=== PATIENT | male | born 1965 | race Caucasian/White ===

== ENCOUNTER 2017-05-13 13:00 | Inpatient (IN) | payer OTHER ==
[~2017-05-13] VITALS: Ht 185.4 cm; Wt 76.1 kg
[2017-05-13] MEDS ORDERED: SODIUM CHLORIDE 0.9% 1,000ML IVBOLUS ONE ×2 (13:30→15:30)
[2017-05-13] MEDS ORDERED: ONDANSETRON 2MG/ML, 2ML IVPush ONE (13:30)
[2017-05-13] MEDS ORDERED: SODIUM CHLORIDE FLUSH 10ML SYR IVF ONE (13:30)
[2017-05-13] MEDS ORDERED: MORPHINE SULFATE 4 MG/ML, 1ML ONE ×2 (13:41→15:11)
[2017-05-13] MEDS ORDERED: ONDANSETRON 2MG/ML, 2ML ONE ×2 (13:42→18:16)
[2017-05-13] MEDS: MORPHINE SULFATE 4 MG/ML, 1ML IVPush PRN ×2 (13:51→15:17)
[2017-05-13] MEDS ORDERED: PLEASE ENTER HEIGHT AND WEIGHT MC SCH (14:00)
[2017-05-13 14:05] LABS: ASPARTATE AMINO TRANSFERASE 26 U/L (15-37); BLOOD UREA NITROGEN 19 mg/dL (7-18)
[2017-05-13 14:35] LABS: DIFF TOTAL CELLS COUNTED 100 CELL DIFF
[2017-05-13 14:36] LABS: VERIFY COUNTS? YES
[2017-05-13] MEDS ORDERED: OMNIPAQUE 350 MG/ML, 100ML BOTTLE ONE (14:41)
[2017-05-13] MEDS ORDERED: AMPICILLIN/SULBACTAM 3 GM in SODIUM CHLORIDE 0.9% 100 ML IV ONE (15:30)
[2017-05-13] MEDS ORDERED: METRONIDAZOLE PMX 500MG/100ML 100 ML IV ONE (15:30)
[2017-05-13] MEDS ORDERED: METRONIDAZOLE PMX 500MG/100ML 100 ML ONE (15:45)
[2017-05-13] MEDS ORDERED: NS + 20MEQ KCL 1,000 ML IV SCH (16:48)
[2017-05-13 16:55] VITALS: BP 104/65
[2017-05-13] MEDS ORDERED: CEFTRIAXONE PMX 2GM/50ML 50 ML IV SCH (17:00)
[2017-05-13] MEDS ORDERED: CEFTRIAXONE 2 GM in SODIUM CHLORIDE 0.9% 50 ML IV SCH (17:00)
[2017-05-13] MEDS: NICOTINE 21 MG/24 HR PATCH.TD24 TD SCH (17:00)
[2017-05-13] MEDS ORDERED: morphine SULFATE 10 MG/ML, 1ML IVPush PRN (17:00)
[2017-05-13] MEDS ORDERED: METRONIDAZOLE PMX 500MG/100ML 100 ML IV SCH (17:00)
[2017-05-13] MEDS ORDERED: ACETAMINOPHEN 325 MG TABLET PO PRN ×2 (17:00→19:30)
[2017-05-13] MEDS ORDERED: LORazepam 2 MG/ML, 1ML IVPush PRN (17:00)
[2017-05-13] MEDS ORDERED: MIDAZOLAM 1 MG/ML, 2ML ONE (17:55)
[2017-05-13] MEDS ORDERED: FENTANYL PF 250 MCG/5ML ONE (17:55)
[2017-05-13] MEDS ORDERED: KETAMINE 10 MG/ML, 20ML ONE (17:55)
[2017-05-13] MEDS ORDERED: PIPERACILLIN/TAZO/PMX 3.375GM 50 ML ONE (18:10)
[2017-05-13] MEDS ORDERED: NEOSTIGMINE 1 MG/ML, 10ML ONE (18:16)
[2017-05-13] MEDS ORDERED: PHENYLEPHRINE 10 MG/ML ONE (18:16)
[2017-05-13] MEDS ORDERED: ROCURONIUM 10 MG/ML ONE (18:16)
[2017-05-13] MEDS ORDERED: PROPOFOL 10 MG/ML, 20ML ONE (18:16)
[2017-05-13] MEDS ORDERED: SUCCINYLCHOLINE 20 MG/ML, 10ML ONE (18:16)
[2017-05-13] MEDS ORDERED: GLYCOPYRROLATE 0.2MG/1ML ONE (18:16)
[2017-05-13] MEDS ORDERED: PROMETHAZINE 25 MG/ML, 1ML IV PRN (19:30)
[2017-05-13] MEDS ORDERED: FENTANYL PF 100 MCG/2ML IV PRN (19:30)
[2017-05-13] MEDS ORDERED: MEPERIDINE/PF 25MG/0.5ML IVPush PRN (19:30)
[2017-05-13] MEDS ORDERED: OXYcodone 5 MG/5 ML ORAL.SOL UDC PO PRN (19:30)
[2017-05-13] MEDS ORDERED: HYDROmorphone 1 MG/ML, 1ML ONE (19:54)
[2017-05-13] MEDS ORDERED: OXYcodone 5 MG/5 ML ORAL.SOL UDC ONE (19:54)
[2017-05-13] MEDS ORDERED: ACETAMINOPHEN 650 MG/20.3 ML UDC ONE (19:54)
[2017-05-13] MEDS: HYDROmorphone 1 MG/ML, 1ML IV PRN ×2 (20:00→20:05)
[2017-05-13] MEDS ORDERED: ACETAMINOPHEN 500 MG TABLET PO ONE (21:00)
[2017-05-13] MEDS ORDERED: ENOXAPARIN 30 MG/0.3 ML SQ SCH (21:00)
[2017-05-13] MEDS ORDERED: D5%-0.45NACL+KCL 20MEQ 1,000 ML IV SCH (21:00)
[2017-05-13] MEDS: PIPERACILLIN/TAZO 3.375 GM in SODIUM CHLORIDE 0.9% 50 ML IV SCH (21:18)
[2017-05-13] MEDS ORDERED: ACETAMINOPHEN 650 MG SUPP PR PRN (21:30)
[2017-05-13] MEDS ORDERED: LACTATED RINGERS 1,000 ML IVBOLUS PRN ×2 (21:30)
[2017-05-14] MEDS: METRONIDAZOLE PMX 500MG/100ML 100 ML IV SCH ×4 (00:59→23:40)
[2017-05-14] MEDS: ENOXAPARIN 30 MG/0.3 ML SQ SCH ×2 (01:46→20:58)
[2017-05-14] MEDS: PIPERACILLIN/TAZO 3.375 GM in SODIUM CHLORIDE 0.9% 50 ML IV SCH ×4 (02:07→20:58)
[2017-05-14] MEDS: HYDROcodone/APAP 5/325 TABLET PO PRN ×4 (02:10→23:40)
[2017-05-14 05:00] LABS: BLOOD UREA NITROGEN 15 mg/dL (7-18)
[2017-05-14 05:06] LABS: ASPARTATE AMINO TRANSFERASE 17 U/L (15-37)
[2017-05-14 05:47] LABS: DIFF TOTAL CELLS COUNTED 100 CELL DIFF
[2017-05-14 05:48] LABS: VERIFY COUNTS? YES
[2017-05-14] MEDS ORDERED: D5%-0.45NACL+KCL 20MEQ 1,000 ML IV SCH (07:30)
[2017-05-14] MEDS ORDERED: BISACODYL 10 MG SUPP PR ONE (09:00)
[2017-05-14] MEDS: ONDANSETRON 2MG/ML, 2ML IVPush PRN ×2 (12:42→23:40)
[2017-05-14] MEDS: NICOTINE 21 MG/24 HR PATCH.TD24 TD SCH (16:43)
[2017-05-14] MEDS ORDERED: morphine SULFATE 10 MG/ML, 1ML IVPush PRN (20:00)
[2017-05-14] MEDS: D5%-0.45NACL+KCL 20MEQ 1,000 ML IV SCH (20:58)
[2017-05-15] MEDS: PIPERACILLIN/TAZO 3.375 GM in SODIUM CHLORIDE 0.9% 50 ML IV SCH ×4 (03:21→22:08)
[2017-05-15 05:15] LABS: BLOOD UREA NITROGEN 11 mg/dL (7-18)
[2017-05-15] MEDS: D5%-0.45NACL+KCL 20MEQ 1,000 ML IV SCH (06:10)
[2017-05-15] MEDS: METRONIDAZOLE PMX 500MG/100ML 100 ML IV SCH ×3 (08:20→23:52)
[2017-05-15] MEDS: HYDROcodone/APAP 5/325 TABLET PO PRN (08:29)
[2017-05-15] MEDS: ONDANSETRON 2MG/ML, 2ML IVPush PRN (08:29)
[2017-05-15] MEDS: ENOXAPARIN 30 MG/0.3 ML SQ SCH ×2 (10:28→21:27)
[2017-05-15] MEDS ORDERED: HYDROmorphone PCA 30 MG/30 ML IV PRN (12:00)
[2017-05-15] MEDS: NICOTINE 21 MG/24 HR PATCH.TD24 TD SCH (16:54)
[2017-05-15 21:32] VITALS: BP 108/67
[2017-05-16 00:34] VITALS: BP 104/66
[2017-05-16] MEDS: PIPERACILLIN/TAZO 3.375 GM in SODIUM CHLORIDE 0.9% 50 ML IV SCH ×4 (04:17→21:44)
[2017-05-16 05:48] LABS: BLOOD UREA NITROGEN 13 mg/dL (7-18)
[2017-05-16 05:51] LABS: ASPARTATE AMINO TRANSFERASE 18 U/L (15-37)
[2017-05-16 07:13] VITALS: BP 101/63
[2017-05-16] MEDS: METRONIDAZOLE PMX 500MG/100ML 100 ML IV SCH (09:02)
[2017-05-16] MEDS: ENOXAPARIN 30 MG/0.3 ML SQ SCH ×2 (09:02→21:44)
[2017-05-16] MEDS ORDERED: LACTULOSE 10 GM/15 ML UDC PO PRN (12:00)
[2017-05-16] MEDS: DOCUSATE 100 MG CAPSULE PO SCH ×2 (12:46→21:44)
[2017-05-16 13:35] VITALS: BP 98/61
[2017-05-16] MEDS: NICOTINE 21 MG/24 HR PATCH.TD24 TD SCH (16:38)
[2017-05-16] MEDS: HYDROcodone/APAP 5/325 TABLET PO PRN (18:34)
[2017-05-16 19:19] VITALS: BP 95/57
[2017-05-16] MEDS ORDERED: MORPHINE SULFATE 4 MG/ML, 1ML ONE (19:58)
[2017-05-17 03:19] VITALS: BP 116/74
[2017-05-17] MEDS: PIPERACILLIN/TAZO 3.375 GM in SODIUM CHLORIDE 0.9% 50 ML IV SCH ×4 (04:23→21:14)
[2017-05-17 06:04] LABS: BLOOD UREA NITROGEN 13 mg/dL (7-18)
[2017-05-17 07:14] VITALS: BP 100/62
[2017-05-17] MEDS: DOCUSATE 100 MG CAPSULE PO SCH ×2 (08:47→21:12)
[2017-05-17] MEDS: ENOXAPARIN 30 MG/0.3 ML SQ SCH ×2 (08:47→21:12)
[2017-05-17 16:05] VITALS: BP 119/78
[2017-05-17] MEDS: NICOTINE 21 MG/24 HR PATCH.TD24 TD SCH (16:19)
[2017-05-17 19:33] VITALS: BP 106/68
[2017-05-18] MEDS: HYDROcodone/APAP 5/325 TABLET PO PRN ×4 (00:39→20:57)
[2017-05-18 02:27] VITALS: BP 114/73
[2017-05-18] MEDS: PIPERACILLIN/TAZO 3.375 GM in SODIUM CHLORIDE 0.9% 50 ML IV SCH ×3 (04:10→16:53)
[2017-05-18 06:43] VITALS: BP 128/84
[2017-05-18] MEDS: DOCUSATE 100 MG CAPSULE PO SCH ×2 (08:52→20:28)
[2017-05-18] MEDS: ENOXAPARIN 30 MG/0.3 ML SQ SCH ×2 (08:52→20:28)
[2017-05-18 15:17] VITALS: BP 112/70
[2017-05-18] MEDS: NICOTINE 21 MG/24 HR PATCH.TD24 TD SCH (16:53)
[2017-05-18 18:37] VITALS: BP 110/65
[2017-05-19] MEDS: HYDROcodone/APAP 5/325 TABLET PO PRN ×3 (00:52→12:46)
[2017-05-19 01:44] VITALS: BP 116/78
[2017-05-19] MEDS: PIPERACILLIN/TAZO/PMX 3.375GM 50 ML IV SCH ×2 (04:10→09:23)
[2017-05-19 07:56] VITALS: BP 120/78
[2017-05-19] MEDS: DOCUSATE 100 MG CAPSULE PO SCH (09:00)
[2017-05-19] MEDS: ENOXAPARIN 30 MG/0.3 ML SQ SCH (09:23)
[2017-05-19] MEDS ORDERED: CEFD300C37 PO (12:33)
[2017-05-19] MEDS ORDERED: METR500T PO (12:33)
[2017-05-19 12:49] VITALS: BP 114/74
== END 2017-05-19 14:54 | disposition home or self-care (01) | DRG 853 ==
LOC: ED 14:11 → EDIP 15:52 → 4NOR 17:02 → CCU 20:40 → 4NOR 05-15 20:18 → DCLOUNGE 05-19 14:23
PROVIDERS: ADMIT Hospitalist; ATTEND Hospitalist
PROC: 0DTJ0ZZ Resection of Appendix, Open Approach (ICD-10-PCS; principal; 2017-05-14)
PROC: 0W9H00Z Drainage of Retroperitoneum with Drainage Device, Open Approach (ICD-10-PCS; 2017-05-14)
DX: A41.9 Sepsis, unspecified organism (principal); K68.19 Other retroperitoneal abscess; F17.200 Nicotine dependence, unspecified, uncomplicated; D75.89 Other specified diseases of blood and blood-forming organs; S30.851A Superficial foreign body of abdominal wall, initial encounter
CPT/HCPCS: 36415; 74000; 74177; 80048; 80053; 81001; 82962; 83605; 83690; 83735; 84100; 84145; 85025; 87040; 87070; 87075; 87076; 87077; 87081; 87086; 87186; 87205; 88304; 93005; 96361; 96365; 96375; 96376; J0696; J1170; J1650; J2250; J2270; J2405; J2543; J2704; J2710; J3010; J3490; Q9967; J0330; J2060; J2370; J3480; J7030; J7120

== ENCOUNTER 2017-07-19 14:10 | Emergency (ER) | payer OTHER ==
[~2017-07-19] VITALS: Ht 185.4 cm; Wt 86.7 kg
[~2017-07-19 14:10] MED LIST: CEFD300C37 PO; METR500T PO
[2017-07-19] MEDS ORDERED: SODIUM CHLORIDE FLUSH 10ML SYR IVF ONE (17:00)
[2017-07-19 17:12] LABS: HEMATOCRIT 42.3 % (39.2-51.8); HEMOGLOBIN 14.2 g/dL (13.7-18.0)
[2017-07-19 17:19] LABS: BLOOD UREA NITROGEN 16 mg/dL (7-18)
[2017-07-19 17:22] LABS: ASPARTATE AMINO TRANSFERASE 13 U/L (15-37)
[2017-07-19 17:29] VITALS: BP 131/90
[2017-07-19] MEDS ORDERED: OMNIPAQUE 350 MG/ML, 100ML BOTTLE ONE (17:44)
== END 2017-07-19 18:30 | disposition home or self-care (01) ==
LOC: ED 18:24
DX: R10.84 Generalized abdominal pain (principal); R11.0 Nausea; R19.7 Diarrhea, unspecified
CPT/HCPCS: 36415; 74177; 80053; 83690; 85025; 85610; 85730; 93005; 99285; Q9967

== ENCOUNTER 2017-08-24 01:01 | Inpatient (IN) | payer MEDICAID, OTHER ==
[~2017-08-24] VITALS: Ht 185.4 cm; Wt 75.7 kg
[2017-08-24] MEDS ORDERED: ONDANSETRON 2MG/ML, 2ML IVPush ONE (01:30)
[2017-08-24] MEDS ORDERED: SODIUM CHLORIDE 0.9% 1,000ML IVBOLUS ONE ×2 (01:30→02:30)
[2017-08-24] MEDS ORDERED: ONDANSETRON 2MG/ML, 2ML ONE (01:37)
[2017-08-24] MEDS ORDERED: MORPHINE SULFATE 4 MG/ML, 1ML ONE ×2 (01:37→02:23)
[2017-08-24 01:55] LABS: HEMATOCRIT 40.7 % (39.2-51.8); HEMOGLOBIN 13.9 g/dL (13.7-18.0); WHITE BLOOD COUNT 30.1 x10^3/uL (3.4-10)
[2017-08-24] MEDS: MORPHINE SULFATE 4 MG/ML, 1ML IVPush PRN ×2 (01:59→02:26)
[2017-08-24 02:04] LABS: ASPARTATE AMINO TRANSFERASE 68 U/L (15-37); BLOOD UREA NITROGEN 12 mg/dL (7-18)
[2017-08-24] MEDS ORDERED: PIPERACILLIN/TAZO/PMX 4.5GM 100 ML IV ONE (02:30)
[2017-08-24] MEDS ORDERED: OMNIPAQUE 350 MG/ML, 100ML BOTTLE ONE (02:49)
[2017-08-24] MEDS ORDERED: VANCOMYCIN 1,600 MG in SODIUM CHLORIDE 0.9% 250 ML IV ONE (04:30)
[2017-08-24] MEDS ORDERED: ONDANSETRON 2MG/ML, 2ML IVPush PRN (04:30)
[2017-08-24] MEDS ORDERED: PIPERACILLIN/TAZO/PMX 4.5GM 100 ML IV SCH (04:30)
[2017-08-24] MEDS ORDERED: VANCOMYCIN PER PHARMACY MC PRN ×2 (04:30)
[2017-08-24] MEDS ORDERED: hydrALAzine 20 MG/ML, 1ML IVPush PRN (04:30)
[2017-08-24] MEDS ORDERED: HEPARIN 5,000 UNITS/ML, 1ML ONE (04:55)
[2017-08-24] MEDS: LACTATED RINGERS 1,000 ML IV SCH ×3 (05:15→23:43)
[2017-08-24] MEDS: HEPARIN 5,000 UNITS/ML, 1ML SQ SCH ×3 (05:15→21:02)
[2017-08-24] MEDS ORDERED: HYDROmorphone 1 MG/ML, 1ML ONE (05:17)
[2017-08-24] MEDS: HYDROmorphone 2 MG/ML, 1ML IVPush PRN ×4 (05:23→21:02)
[2017-08-24 06:18] VITALS: BP 111/73
[2017-08-24] MEDS ORDERED: PHARMACOKINETIC MONITORING MC PRN (06:30)
[2017-08-24] MEDS ORDERED: PHARMACOKINETIC CONSULTATION MC ONE (06:30)
[2017-08-24] MEDS: PIPERACILLIN/TAZO/PMX 4.5GM 100 ML IV SCH ×3 (08:17→21:02)
[2017-08-24] MEDS ORDERED: LIDOCAINE 2%, 20ML ONE (10:28)
[2017-08-24] MEDS ORDERED: NALOXONE 1 MG/ML, 2ML ONE (11:04)
[2017-08-24] MEDS ORDERED: FENTANYL PF 100 MCG/2ML ONE (11:04)
[2017-08-24] MEDS ORDERED: FLUMAZENIL 0.1 MG/1 ML, 5ML ONE (11:04)
[2017-08-24] MEDS ORDERED: MIDAZOLAM 1 MG/ML, 5ML ONE (11:04)
[2017-08-24 13:16] VITALS: BP 123/78
[2017-08-24] MEDS: VANCOMYCIN 1,600 MG in SODIUM CHLORIDE 0.9% 250 ML IV SCH (17:06)
[2017-08-24 19:45] VITALS: BP 107/67
[2017-08-24] MEDS ORDERED: ACETAMINOPHEN 325 MG TABLET PO PRN (21:30)
[2017-08-24] MEDS ORDERED: ACETAMINOPHEN 325 MG TABLET ONE (21:33)
[2017-08-24 23:43] VITALS: BP 114/70
[2017-08-25 01:52] VITALS: BP 120/85
[2017-08-25] MEDS: HYDROmorphone 2 MG/ML, 1ML IVPush PRN ×6 (03:08→23:57)
[2017-08-25] MEDS: PIPERACILLIN/TAZO/PMX 4.5GM 100 ML IV SCH ×4 (03:08→20:02)
[2017-08-25] MEDS: VANCOMYCIN 1,600 MG in SODIUM CHLORIDE 0.9% 250 ML IV SCH ×2 (04:26→16:09)
[2017-08-25 05:39] LABS: HEMATOCRIT 36.6 % (39.2-51.8); HEMOGLOBIN 12.2 g/dL (13.7-18.0); WHITE BLOOD COUNT 41.6 x10^3/uL (3.4-10)
[2017-08-25] MEDS: HEPARIN 5,000 UNITS/ML, 1ML SQ SCH ×3 (05:45→20:02)
[2017-08-25 06:25] LABS: ASPARTATE AMINO TRANSFERASE 25 U/L (15-37); BLOOD UREA NITROGEN 13 mg/dL (7-18)
[2017-08-25 07:16] VITALS: BP 105/67
[2017-08-25 14:08] VITALS: BP 130/78
[2017-08-25 20:05] VITALS: BP 119/76
[2017-08-26 01:28] VITALS: BP 105/66
[2017-08-26] MEDS: LACTATED RINGERS 1,000 ML IV SCH ×2 (02:08→20:17)
[2017-08-26] MEDS: PIPERACILLIN/TAZO/PMX 4.5GM 100 ML IV SCH ×4 (02:36→20:16)
[2017-08-26 04:08] LABS: HEMOGLOBIN 11.4 g/dL (13.7-18.0); WHITE BLOOD COUNT 37.8 x10^3/uL (3.4-10)
[2017-08-26 04:31] LABS: ASPARTATE AMINO TRANSFERASE 12 U/L (15-37); BLOOD UREA NITROGEN 20 mg/dL (7-18)
[2017-08-26] MEDS: VANCOMYCIN 1,600 MG in SODIUM CHLORIDE 0.9% 250 ML IV SCH ×2 (04:42→06:09)
[2017-08-26] MEDS: HEPARIN 5,000 UNITS/ML, 1ML SQ SCH ×3 (04:44→20:16)
[2017-08-26] MEDS: HYDROmorphone 2 MG/ML, 1ML IVPush PRN ×5 (04:45→22:13)
[2017-08-26 07:09] VITALS: BP 111/72
[2017-08-26 13:33] VITALS: BP 121/76
[2017-08-26] MEDS: VANCOMYCIN 1,400 MG in SODIUM CHLORIDE 0.9% 250 ML IV SCH (18:33)
[2017-08-26 20:30] VITALS: BP 118/74
[2017-08-26] MEDS ORDERED: ACETAMINOPHEN 325 MG TABLET PO PRN (21:30)
[2017-08-26] MEDS ORDERED: hydrALAzine 20 MG/ML, 1ML IVPush PRN (21:30)
[2017-08-26] MEDS ORDERED: VANCOMYCIN PER PHARMACY MC PRN (21:30)
[2017-08-26] MEDS ORDERED: ONDANSETRON 2MG/ML, 2ML IVPush PRN (21:30)
[2017-08-26] MEDS ORDERED: OMNIPAQUE 350 MG/ML, 100ML BOTTLE ONE (22:38)
[2017-08-27 00:46] VITALS: BP 109/70
[2017-08-27] MEDS: HYDROmorphone 2 MG/ML, 1ML IVPush PRN ×7 (01:56→23:31)
[2017-08-27] MEDS: PIPERACILLIN/TAZO/PMX 4.5GM 100 ML IV SCH ×4 (03:23→23:30)
[2017-08-27 05:06] LABS: HEMATOCRIT 32.3 % (39.2-51.8); HEMOGLOBIN 10.9 g/dL (13.7-18.0); WHITE BLOOD COUNT 28.4 x10^3/uL (3.4-10)
[2017-08-27 05:19] LABS: ASPARTATE AMINO TRANSFERASE 9 U/L (15-37); BLOOD UREA NITROGEN 17 mg/dL (7-18)
[2017-08-27] MEDS: VANCOMYCIN 1,400 MG in SODIUM CHLORIDE 0.9% 250 ML IV SCH ×2 (05:28→18:44)
[2017-08-27] MEDS: HEPARIN 5,000 UNITS/ML, 1ML SQ SCH ×3 (05:28→23:31)
[2017-08-27] MEDS: LACTATED RINGERS 1,000 ML IV SCH ×2 (09:54→22:35)
[2017-08-27 13:31] VITALS: BP 118/76
[2017-08-27 19:42] VITALS: BP 114/74
[2017-08-28 02:27] VITALS: BP 124/78
[2017-08-28] MEDS: HYDROmorphone 2 MG/ML, 1ML IVPush PRN ×3 (05:13→13:22)
[2017-08-28] MEDS: PIPERACILLIN/TAZO/PMX 4.5GM 100 ML IV SCH ×3 (05:13→22:16)
[2017-08-28 06:17] LABS: HEMATOCRIT 31.1 % (39.2-51.8); HEMOGLOBIN 10.6 g/dL (13.7-18.0); WHITE BLOOD COUNT 22.3 x10^3/uL (3.4-10)
[2017-08-28] MEDS: VANCOMYCIN 1,400 MG in SODIUM CHLORIDE 0.9% 250 ML IV SCH ×3 (06:25→19:38)
[2017-08-28] MEDS: LACTATED RINGERS 1,000 ML IV SCH (06:25)
[2017-08-28 06:44] LABS: ASPARTATE AMINO TRANSFERASE 20 U/L (15-37); BLOOD UREA NITROGEN 12 mg/dL (7-18)
[2017-08-28 06:51] LABS: C-REACTIVE PROTEIN, QUANT > 19.00 mg/dL (0.02-0.49)
[2017-08-28 06:58] VITALS: BP 108/68
[2017-08-28] MEDS: HEPARIN 5,000 UNITS/ML, 1ML SQ SCH ×2 (09:10→18:37)
[2017-08-28] MEDS ORDERED: HYDROcodone/APAP 5/325 TABLET PO PRN (10:00)
[2017-08-28] MEDS: SODIUM CHLORIDE 0.9% 1,000 ML IV SCH ×2 (12:05→22:19)
[2017-08-28 14:53] VITALS: BP 117/74
[2017-08-28] MEDS: HYDROcodone/APAP 5/325 TABLET PO PRN ×2 (17:49→22:19)
[2017-08-28 20:00] VITALS: BP 107/71
[2017-08-29 02:00] VITALS: BP 120/81
[2017-08-29] MEDS: PIPERACILLIN/TAZO/PMX 4.5GM 100 ML IV SCH ×3 (03:42→20:23)
[2017-08-29] MEDS: HEPARIN 5,000 UNITS/ML, 1ML SQ SCH ×3 (03:42→20:23)
[2017-08-29 05:25] LABS: HEMATOCRIT 29.4 % (39.2-51.8); HEMOGLOBIN 9.9 g/dL (13.7-18.0); WHITE BLOOD COUNT 18.6 x10^3/uL (3.4-10)
[2017-08-29 05:29] LABS: ASPARTATE AMINO TRANSFERASE 13 U/L (15-37); BLOOD UREA NITROGEN 12 mg/dL (7-18)
[2017-08-29] MEDS: VANCOMYCIN 1,400 MG in SODIUM CHLORIDE 0.9% 250 ML IV SCH (06:43)
[2017-08-29] MEDS: HYDROcodone/APAP 5/325 TABLET PO PRN ×4 (06:43→21:11)
[2017-08-29 08:25] VITALS: BP 116/79
[2017-08-29] MEDS: SODIUM CHLORIDE 0.9% 1,000 ML IV SCH (08:50)
[2017-08-29] MEDS ORDERED: POTASSIUM CHLORIDE 20 MEQ TAB.ER.PRT PO ONE (10:00)
[2017-08-29 13:15] VITALS: BP 112/68
[2017-08-29 20:00] VITALS: BP 116/68
[2017-08-30] MEDS: HYDROcodone/APAP 5/325 TABLET PO PRN ×4 (01:30→21:36)
[2017-08-30 02:00] VITALS: BP 127/84
[2017-08-30] MEDS: PIPERACILLIN/TAZO/PMX 4.5GM 100 ML IV SCH ×3 (04:11→20:15)
[2017-08-30] MEDS: HEPARIN 5,000 UNITS/ML, 1ML SQ SCH ×3 (04:11→20:15)
[2017-08-30 04:26] LABS: HEMATOCRIT 31.9 % (39.2-51.8); HEMOGLOBIN 10.7 g/dL (13.7-18.0); WHITE BLOOD COUNT 19.5 x10^3/uL (3.4-10)
[2017-08-30 04:38] LABS: BLOOD UREA NITROGEN 13 mg/dL (7-18)
[2017-08-30 06:09] LABS: DIFF TOTAL CELLS COUNTED 100 CELL DIFF
[2017-08-30 06:11] LABS: ANISOCYTOSIS 1+; VERIFY COUNTS? YES
[2017-08-30 06:13] LABS: POLYCHROMASIA 1+
[2017-08-30 08:15] VITALS: BP 119/79
[2017-08-30 14:00] VITALS: BP 132/79
[2017-08-30 20:00] VITALS: BP 117/72
[2017-08-31 02:00] VITALS: BP 115/76
[2017-08-31] MEDS: HEPARIN 5,000 UNITS/ML, 1ML SQ SCH ×3 (04:13→19:48)
[2017-08-31] MEDS: PIPERACILLIN/TAZO/PMX 4.5GM 100 ML IV SCH ×3 (04:13→19:48)
[2017-08-31] MEDS: HYDROcodone/APAP 5/325 TABLET PO PRN ×3 (04:16→17:59)
[2017-08-31] MEDS: HYDROmorphone 2 MG/ML, 1ML IVPush PRN ×4 (05:28→20:58)
[2017-08-31 06:51] LABS: HEMATOCRIT 31.2 % (39.2-51.8); HEMOGLOBIN 10.5 g/dL (13.7-18.0); WHITE BLOOD COUNT 17.9 x10^3/uL (3.4-10)
[2017-08-31 06:59] LABS: ASPARTATE AMINO TRANSFERASE 16 U/L (15-37); BLOOD UREA NITROGEN 13 mg/dL (7-18)
[2017-08-31 07:08] VITALS: BP 116/77
[2017-08-31 14:33] VITALS: BP 123/80
[2017-08-31 19:59] VITALS: BP 124/77
[2017-09-01 01:53] VITALS: BP 123/77
[2017-09-01] MEDS: PIPERACILLIN/TAZO/PMX 4.5GM 100 ML IV SCH ×3 (03:54→21:52)
[2017-09-01] MEDS: HEPARIN 5,000 UNITS/ML, 1ML SQ SCH ×3 (03:54→21:52)
[2017-09-01] MEDS: HYDROcodone/APAP 5/325 TABLET PO PRN ×4 (03:54→22:39)
[2017-09-01 05:46] LABS: HEMATOCRIT 32.6 % (39.2-51.8); HEMOGLOBIN 10.7 g/dL (13.7-18.0); WHITE BLOOD COUNT 18.5 x10^3/uL (3.4-10)
[2017-09-01 06:08] LABS: ASPARTATE AMINO TRANSFERASE 17 U/L (15-37); BLOOD UREA NITROGEN 14 mg/dL (7-18)
[2017-09-01 08:29] VITALS: BP 127/79
[2017-09-01 14:03] VITALS: BP 121/83
[2017-09-01 19:21] VITALS: BP 113/73
[2017-09-02 01:57] VITALS: BP 120/80
[2017-09-02] MEDS: HEPARIN 5,000 UNITS/ML, 1ML SQ SCH ×3 (04:53→20:32)
[2017-09-02] MEDS: PIPERACILLIN/TAZO/PMX 4.5GM 100 ML IV SCH ×3 (04:53→20:31)
[2017-09-02] MEDS: HYDROcodone/APAP 5/325 TABLET PO PRN ×2 (05:07→16:50)
[2017-09-02] MEDS: HYDROmorphone 2 MG/ML, 1ML IVPush PRN ×2 (07:14→22:57)
[2017-09-02 07:24] VITALS: BP 124/83
[2017-09-02] MEDS ORDERED: OMNIPAQUE 350 MG/ML, 100ML BOTTLE ONE (08:44)
[2017-09-02 13:30] VITALS: BP 128/86
[2017-09-02 20:21] VITALS: BP 108/69
[2017-09-02] MEDS ORDERED: hydrALAzine 20 MG/ML, 1ML IVPush PRN (20:30)
[2017-09-02] MEDS ORDERED: ACETAMINOPHEN 325 MG TABLET PO PRN (20:30)
[2017-09-02] MEDS ORDERED: ONDANSETRON 2MG/ML, 2ML IVPush PRN (20:30)
[2017-09-03 02:08] VITALS: BP 122/76
[2017-09-03] MEDS: HYDROcodone/APAP 5/325 TABLET PO PRN ×3 (03:33→21:27)
[2017-09-03] MEDS: PIPERACILLIN/TAZO/PMX 4.5GM 100 ML IV SCH ×3 (04:37→20:07)
[2017-09-03] MEDS: HEPARIN 5,000 UNITS/ML, 1ML SQ SCH ×3 (04:38→20:07)
[2017-09-03 07:45] VITALS: BP 119/82
[2017-09-03] MEDS: MICAFUNGIN 100 MG in SODIUM CHLORIDE 0.9% 100 ML IV SCH (13:59)
[2017-09-03 14:21] VITALS: BP 108/58
[2017-09-03] MEDS: HYDROmorphone 2 MG/ML, 1ML IVPush PRN (19:11)
[2017-09-03 20:00] VITALS: BP 106/68
[2017-09-04 02:00] VITALS: BP 115/77
[2017-09-04] MEDS: HYDROcodone/APAP 5/325 TABLET PO PRN ×2 (03:32→15:10)
[2017-09-04] MEDS: HEPARIN 5,000 UNITS/ML, 1ML SQ SCH ×3 (04:30→20:27)
[2017-09-04] MEDS: PIPERACILLIN/TAZO/PMX 4.5GM 100 ML IV SCH ×3 (04:30→20:26)
[2017-09-04 04:58] LABS: HEMATOCRIT 31.6 % (39.2-51.8); HEMOGLOBIN 10.6 g/dL (13.7-18.0); WHITE BLOOD COUNT 14.5 x10^3/uL (3.4-10)
[2017-09-04 05:01] LABS: BLOOD UREA NITROGEN 16 mg/dL (7-18)
[2017-09-04 05:10] LABS: ASPARTATE AMINO TRANSFERASE 12 U/L (15-37)
[2017-09-04 08:07] VITALS: BP 115/77
[2017-09-04] MEDS: MICAFUNGIN 100 MG in SODIUM CHLORIDE 0.9% 100 ML IV SCH (12:59)
[2017-09-04] MEDS: ASPIRIN 81 MG TABLET EC PO SCH (13:25)
[2017-09-04 14:10] VITALS: BP 120/80
[2017-09-04 20:00] VITALS: BP 129/87
[2017-09-04] MEDS: HYDROmorphone 2 MG/ML, 1ML IVPush PRN (20:25)
[2017-09-05] MEDS: HYDROcodone/APAP 5/325 TABLET PO PRN ×3 (00:01→13:38)
[2017-09-05 02:00] VITALS: BP 119/83
[2017-09-05] MEDS: PIPERACILLIN/TAZO/PMX 4.5GM 100 ML IV SCH ×3 (04:20→19:49)
[2017-09-05] MEDS: HEPARIN 5,000 UNITS/ML, 1ML SQ SCH ×3 (04:20→19:48)
[2017-09-05] MEDS: ASPIRIN 81 MG TABLET EC PO SCH (04:20)
[2017-09-05 06:00] LABS: BLOOD UREA NITROGEN 18 mg/dL (7-18)
[2017-09-05 06:10] LABS: HEMATOCRIT 31.4 % (39.2-51.8); HEMOGLOBIN 10.3 g/dL (13.7-18.0); WHITE BLOOD COUNT 13.6 x10^3/uL (3.4-10)
[2017-09-05 08:35] VITALS: BP 110/74
[2017-09-05] MEDS: ASPIRIN 325 MG TABLET PO SCH (08:48)
[2017-09-05] MEDS: MICAFUNGIN 100 MG in SODIUM CHLORIDE 0.9% 100 ML IV SCH (12:55)
[2017-09-05 13:41] VITALS: BP 124/79
[2017-09-05 20:00] VITALS: BP 111/66
[2017-09-06 02:00] VITALS: BP 121/84
[2017-09-06] MEDS: HEPARIN 5,000 UNITS/ML, 1ML SQ SCH ×3 (04:43→20:12)
[2017-09-06] MEDS: PIPERACILLIN/TAZO/PMX 4.5GM 100 ML IV SCH ×3 (04:43→20:12)
[2017-09-06] MEDS: ASPIRIN 325 MG TABLET PO SCH (09:40)
[2017-09-06 10:21] LABS: HEMATOCRIT 32.3 % (39.2-51.8); HEMOGLOBIN 10.7 g/dL (13.7-18.0); WHITE BLOOD COUNT 15.2 x10^3/uL (3.4-10)
[2017-09-06] MEDS: MICAFUNGIN 100 MG in SODIUM CHLORIDE 0.9% 100 ML IV SCH (14:05)
[2017-09-06 15:25] VITALS: BP 119/78
[2017-09-06 18:41] LABS: FERRITIN 867.2 ng/mL (26-388)
[2017-09-06 19:58] VITALS: BP 112/72
[2017-09-06] MEDS: HYDROcodone/APAP 5/325 TABLET PO PRN (21:44)
[2017-09-07 02:00] VITALS: BP 123/83
[2017-09-07] MEDS: PIPERACILLIN/TAZO/PMX 4.5GM 100 ML IV SCH ×3 (03:17→20:02)
[2017-09-07] MEDS: HEPARIN 5,000 UNITS/ML, 1ML SQ SCH ×3 (03:18→20:03)
[2017-09-07 08:07] LABS: HEMATOCRIT 33.3 % (39.2-51.8); HEMOGLOBIN 11.3 g/dL (13.7-18.0); WHITE BLOOD COUNT 13.8 x10^3/uL (3.4-10)
[2017-09-07 08:54] VITALS: BP 119/82
[2017-09-07] MEDS ORDERED: ERGOCALCIFEROL 50,000 UNIT CAPSULE PO SCH (09:00)
[2017-09-07] MEDS: ASPIRIN 325 MG TABLET PO SCH (09:02)
[2017-09-07] MEDS: HYDROcodone/APAP 5/325 TABLET PO PRN (09:07)
[2017-09-07] MEDS: MICAFUNGIN 100 MG in SODIUM CHLORIDE 0.9% 100 ML IV SCH (12:49)
[2017-09-07] MEDS: VORICONAZOLE 200 MG TABLET PO SCH (14:54)
[2017-09-07 14:55] VITALS: BP 119/84
[2017-09-07 19:02] VITALS: BP 115/71
[2017-09-07] MEDS ORDERED: METHOCARBAMOL 500 MG TABLET PO ONE (20:30)
[2017-09-08] MEDS: HYDROcodone/APAP 5/325 TABLET PO PRN ×2 (00:14→16:01)
[2017-09-08 01:31] VITALS: BP 108/74
[2017-09-08] MEDS: PIPERACILLIN/TAZO/PMX 4.5GM 100 ML IV SCH ×2 (03:50→12:30)
[2017-09-08] MEDS: VORICONAZOLE 200 MG TABLET PO SCH (03:50)
[2017-09-08] MEDS: HEPARIN 5,000 UNITS/ML, 1ML SQ SCH ×2 (03:51→12:31)
[2017-09-08 05:40] LABS: HEMATOCRIT 32.1 % (39.2-51.8); HEMOGLOBIN 10.8 g/dL (13.7-18.0)
[2017-09-08 08:15] VITALS: BP 101/68
[2017-09-08] MEDS: ASPIRIN 325 MG TABLET PO SCH (09:31)
[2017-09-08] MEDS ORDERED: VORI200T PO (12:07)
[2017-09-08] MEDS ORDERED: DOXY100T10 PO (12:07)
[2017-09-08] MEDS ORDERED: PIPE4.5F2 IV (12:07)
[2017-09-08] MEDS ORDERED: HYDR-3240 PO (12:07)
[2017-09-08] MEDS ORDERED: ASPI325T17 PO (12:07)
[2017-09-08] MEDS ORDERED: ERGO500017 PO (12:07)
[2017-09-08 13:35] VITALS: BP 124/81
[2017-09-08] MEDS ORDERED: VORICONAZOLE 200 MG TABLET PO SCH (14:00)
== END 2017-09-08 16:25 | DRG 871 ==
LOC: ED 01:21 → EDIP 04:03 → SUATTDRO 04:11 → 4EST 06:12
PROVIDERS: ADMIT Hospitalist; ATTEND Family Medicine
PROC: 0F9130Z Drainage of Right Lobe Liver with Drainage Device, Percutaneous Approach (ICD-10-PCS; principal; 2017-08-24)
PROC: 02HV33Z Insertion of Infusion Device into Superior Vena Cava, Percutaneous Approach (ICD-10-PCS; 2017-08-28)
PROC: B548ZZA Ultrasonography of Superior Vena Cava, Guidance (ICD-10-PCS; 2017-08-28)
DX: A40.9 Streptococcal sepsis, unspecified (principal); K75.0 Abscess of liver; N17.9 Acute kidney failure, unspecified; E44.0 Moderate protein-calorie malnutrition; D69.6 Thrombocytopenia, unspecified; E87.1 Hypo-osmolality and hyponatremia; E86.9 Volume depletion, unspecified; R74.0 Nonspecific elevation of levels of transaminase and lactic acid dehydrogenase [LDH]; D75.89 Other specified diseases of blood and blood-forming organs; F12.10 Cannabis abuse, uncomplicated; E55.9 Vitamin D deficiency, unspecified; F17.210 Nicotine dependence, cigarettes, uncomplicated; Z90.49 Acquired absence of other specified parts of digestive tract; Z82.3 Family history of stroke; Z68.22 Body mass index [BMI] 22.0-22.9, adult
CPT/HCPCS: 36415; 36569; 49405; 74177; 75989; 76937; 77001; 80048; 80053; 80202; 80307; 82306; 82607; 82728; 83540; 83550; 83605; 83690; 83735; 84100; 84145; 84466; 85025; 85610; 85651; 85730; 86140; 87015; 87040; 87070; 87075; 87076; 87077; 87102; 87106; 87116; 87186; 87205; 87206; 96365; 96375; 99156; 99157; C1894; J1170; J1644; J2248; J2250; J2405; J2543; J3010; J3370; J3490; Q9967; C1729; C1751; C1769; G0479; J2310; J7030; J7050; J7120